=== PATIENT | male | born 1955 | race Caucasian/White ===

== ENCOUNTER 2021-04-07 15:52 | Emergency (ER) | payer MEDICARE, SELFPAY ==
[2021-04-07 15:53] VITALS: BP 107/67; PULSE 70; RESP 18; TEMP 36.1; O2SAT 94; BMI 22.1
--- NOTE | 2021-04-07 16:45 | EDS_ITS ---
HPI History of Present Illness Chief Complaint: Shortness of Breath Narrative Narrative: 65-year-old male presenting with cough. States this started this morning. He states he is coughing up a little bit of white sputum. He denies fever, chills, body aches, change in taste or smell. He is not short of breath. He denies chest pain. He is eating and drinking normally. He is making normal urine and stool. He has no other complaints besides a cough. He took Vicks and his cough improved. [facility] Social History Smoking Status: Never smoker ROS ROS ED Constitutional Constitutional ED: Denies chills or fever(s) Eyes Eyes: Denies blurry vision or diplopia ENT ENT ED: Denies rhinorrhea or sore throat Cardiovascular Cardiovascular: Denies chest pain or palpitations Respiratory/Chest Respiratory/Chest: Reports cough and sputum; Denies dyspnea or dyspnea on exertion Gastrointestinal Gastrointestinal: Denies abdominal pain, nausea or vomiting Genitourinary Genitourinary ED: Denies dysuria or hematuria Musculoskeletal Musculoskeletal: Denies arthralgias or myalgias Neurologic Neurologic: Denies headache(s) or paresthesias EXAM Physical Exam Const Vital Signs: 04/07/21 15:53 Temperature 96.9 F L Temperature Source Temporal Pulse Rate 70 Respiratory Rate 18 Blood Pressure 107/67 Blood Pressure Mean 80 Pulse Ox 94 Oxygen Delivery Method Room Air Positive well nourished General Appearance ED: NAD HEENT Reports moist mucous membranes Negative for trauma Eyes PERRL and EOMs intact bilaterally Neck no lymphadenopathy and supple Neck Narrative: No stridor Resp normal respiratory effort and clear to auscultation bilaterally Cardio regular rate and regular rhythm Neuro oriented x3 and CN's II-XII intact bilaterally Psych mental status grossly normal Skin no rashes or lesions noted MDM MDM MDM Narrative Medical decision making narrative: Patient presenting with a cough since this morning. He does not want to be tested for Covid. He is offered Tessalon Perles and declines because he already took Vicks which helped his cough. I attempted to order a chest x-ray however when the patient was up for radiology he had left to the emergency room. Impression: 1. Cough Discharge Plan Triage Chief Complaint: Shortness of Breath ED Provider: Farooq Gan Disposition Disposition: [facility]
--- NOTE | 2021-04-07 17:15 | ED.RN ---
Entered room at gown lying on bed; pt gone.
== END 2021-04-07 17:30 | disposition left against medical advice (07) ==
PROVIDERS: Emergency Provider Student in an Organized Health Care Education/Training Program
DX: R05.9 Cough, unspecified (principal)
CPT/HCPCS: 99281